=== PATIENT | female | born 1960 | race American Indian/Alaskan Native ===

== ENCOUNTER 2019-10-21 19:49 | Emergency (ER) | payer BC ==
[2019-10-21] MEDS ORDERED: TETRACAINE 0.5% OPHTH SOLN 4ML OU ONE (20:47)
--- NOTE | 2019-10-21 21:21 | Emergency Department Report ---
ED Eye Problem HPI - General Chief complaint: Eye Problems Stated complaint: FLOATERS IN LF EYE Time Seen by Provider: 10/21/19 20:32 Source: patient Mode of arrival: Ambulatory Limitations: No Limitations - History of Present Illness Initial comments: Patient is a 58-year-old female who presents emergency room with complaints of floaters present in the left eye that began around 6:30 PM tonight. She states that it looked like a bug was flying around and she just sees small floaters. She states that her vision does not appear blurry that she just sees the floaters. She denies any pain in the eye. She denies getting anything in the eye. She denies any contact lens use. She states this is never happened in the past. She denies any photophobia or any other symptoms. She denies any headache, facial droop, speech disturbance, gait disturbance, numbness, weakness, dizziness, chest pain, shortness of breath. 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 She has an allergy to Augmentin clarithromycin codeine and Bactrim. - Related Data Allergies Allergy/AdvReac Type Severity Reaction Status Date / Time amoxicillin [From Augmentin] Allergy Anaphylaxis Verified 10/21/19 20:01 clarithromycin [From Biaxin] Allergy Hives Verified 10/21/19 20:01 clavulanic acid Allergy Anaphylaxis Verified 10/21/19 20:01 [From Augmentin] codeine Allergy Nausea Verified 10/21/19 20:01 sulfamethoxazole Allergy Anaphylaxis Verified 10/21/19 19:59 [From Bactrim] trimethoprim [From Bactrim] Allergy Anaphylaxis Verified 10/21/19 19:59 ED Review of Systems ROS: Stated complaint: FLOATERS IN LF EYE Other details as noted in HPI Comment: All other systems reviewed and negative ED Past Medical Hx - Past Medical History 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 Absent: scleral icterus, conjunctival injection, nystagmus, periorbital swelling, periorbital tenderness Pupils: Present: normal accommodation - ENT ENT exam: Present: mucous membranes moist - Respiratory Respiratory exam: Present: normal lung sounds bilaterally. Absent: respiratory distress, wheezes, rales, rhonchi, stridor, chest wall tenderness, accessory muscle use, decreased breath sounds, prolonged expiratory - Cardiovascular Cardiovascular Exam: Present: regular rate, normal rhythm, normal heart sounds. Absent: systolic murmur, diastolic murmur, rubs, gallop - Neurological Exam Neurological exam: Present: alert, oriented X3, CN II-XII intact, normal gait. Absent: motor sensory deficit - Psychiatric Psychiatric exam: Present: normal affect, normal mood - Skin Skin exam: Present: warm, dry, intact ED Course Vital Signs 10/21/19 10/21/19 19:58 23:35 Temperature 98.4 F Pulse Rate 85 78 Respiratory 16 16 Rate Blood Pressure 178/91 Blood Pressure 154/81 [Right] O2 Sat by Pulse 99 98 Oximetry - Consultations Consultation #1: 10/21/19 22:[address] Randall, ophthalmic technologist at [facility], discussed pt presentation and all results states that patient can follow-up with her outpatient ophthalmic technologist in 24 hours, believes unlikely to be emergent condition at this time, states patient can follow-up outpatient and does not need emergent transfer ED Medical Decision Making - Lab Data Vital Signs 10/21/19 10/21/19 19:58 23:35 Temperature 98.4 F Pulse Rate 85 78 Respiratory 16 16 Rate Blood Pressure 178/91 Blood Pressure 154/81 [Right] O2 Sat by Pulse 99 98 Oximetry - Medical Decision Making Patient is a 58-year-old female who presents emergency room with complaints of floaters present in the left eye that began around 6:30 PM tonight. She states that it looked like a bug was flying around and she just sees small floaters. She states that her vision does not appear blurry that she just sees the floaters. She denies any pain in the eye. She denies getting anything in the eye. She denies any contact lens use. She states this is never happened in the past. She denies any photophobia or any other symptoms. She denies any headache, facial droop, speech disturbance, gait disturbance, numbness, weakness, dizziness, chest pain, shortness of breath. 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 She has an allergy to Augmentin clarithromycin codeine and Bactrim. Initial vitals with elevated blood pressure which improved upon repeat. On exam: Normal appearance of the eyes, no conjunctival injection, no obvious abnormality on funduscopic exam, EOMI, PERRL. Discussed case with Dr. Goins, ER attending who evaluated patient at bedside and performed funduscopic exam and also did not see any obvious abnormality recommended discussing case with an ophthalmic technologist. Visual acuity bilateral 20/15, right eye 20/20, left eye 20/25. Guero-Pen used for eye pressure, right eye 17, left eye 4. the patient states that the floaters have improved. discussed case with Dr. Randall, ophthalmic technologist at [facility], discussed pt presentation and all results, states that patient can follow-up with her outpatient ophthalmic technologist in 24 hours, believes unlikely to be emergent condition at this time, states patient can follow-up outpatient and does not need emergent transfer. Discussed with patient the importance of seeing an ophthalmic technologist in the next 24 hours, she verbalized understanding. advised pt It is very important that you follow-up with an ophthalmic technologist in the next 24 hours. Return to the emergency room immediately for any new or worsening symptoms including but not limited to vision changes, flashing lights, sensation of curtain closing, worsening floaters, any other symptoms, etc. - Differential Diagnosis Retinal detachment, open/closed angle glaucoma, vitreous floaters Critical care attestation.: If time is entered above; I have spent that time in minutes in the direct care of this critically ill patient, excluding procedure time. ED Disposition Clinical Impression: Vitreous floaters of left eye Disposition: DC-01 TO HOME OR SELFCARE Is pt being admited?: No Does the pt Need Aspirin: No Condition: Stable Instructions: Visual Floaters (ED) Additional Instructions: It is very important that you follow-up with an ophthalmic technologist in the next 24 hours. Return to the emergency room immediately for any new or worsening symptoms including but not limited to vision changes, flashing lights, sensation of curtain closing, worsening floaters, any other symptoms, etc. Referrals: ANJALI STUBBS MD [Staff Physician] - 24 Hours [facility] [Provider Group] - 24 Hours Time of Disposition: 23:12 Print Language: SUDANESE
[2019-10-22 01:30] VITALS: BP 154/81
== END 2019-10-21 23:35 | disposition home or self-care (01) ==
LOC: ED 19:49
DX: H43.392 Other vitreous opacities, left eye (principal); Z88.1 Allergy status to other antibiotic agents; Z88.6 Allergy status to analgesic agent
CPT/HCPCS: 99282

== ENCOUNTER 2020-01-19 08:51 | Outpatient (CLI) | payer BC ==
--- NOTE | 2020-01-19 11:46 | Mammography Report ---
DIGITAL SCREENING MAMMOGRAM WITH CAD, 01/19/2020 INDICATION: Routine screening mammography. TECHNIQUE: Digital bilateral 2D mammography was obtained in the craniocaudal and mediolateral obliq ue projections. This examination was interpreted with the benefit of Computer-Aided Detection analysi s. COMPARISON: 09/07/2014, 06/03/2013 FINDINGS: Breast Density: The breasts are heterogeneously dense, which may obscure small masses. There is no evidence of dominant mass, suspicious calcifications or architectural distortion in eithe r breast. IMPRESSION: Follow up recommendation: Routine yearly BI-RADS Category 1: Negative. A "normal" or negative report should not discourage follow up or biopsy of a clinically significant f inding. A written summary of these findings will be mailed to the patient. The patient will be entered into a mammography reporting system which will generate a reminder letter for the patient's next appointmen t at the appropriate interval. The [employer] recommends yearly mammograms starting at age 40 and continuing as l juan as a woman is in good health. Breast MRI is recommended for women with an approximate 20-25% or greater lifetime risk of breast cancer, including women with a strong family history of breast or ova mai cancer or who have been treated for Hodgkin's disease. Signer Name: Aniket Rose MD Signed: 01/19/2020 11:41 AM Workstation Name: [id number]
== END 2020-01-19 08:52 | disposition home or self-care (01) ==
LOC: SPVWC 08:51
PROVIDERS: ATTEND Obstetrics & Gynecology
DX: Z12.31 Encounter for screening mammogram for malignant neoplasm of breast (principal); N64.89 Other specified disorders of breast
CPT/HCPCS: 77067

== ENCOUNTER 2021-02-23 15:52 | Outpatient (CLI) | payer BC ==
--- NOTE | 2021-02-24 08:40 | Mammography Report ---
DIGITAL SCREENING MAMMOGRAM WITH CAD, 02/23/2021 CLINICAL INFORMATION / INDICATION: Routine screening TECHNIQUE: Digital bilateral 2D mammography was obtained in the craniocaudal and mediolateral obliqu e projections. This examination was interpreted with the benefit of Computer-Aided Detection analysis . COMPARISON: 01/19/2020 FINDINGS: Breast Density: The breasts are heterogeneously dense, which may obscure small masses. No dominant mass, suspicious calcifications, or architectural distortion in either breast. IMPRESSION: No mammographic evidence of malignancy. Follow up recommendation: Routine yearly BI-RADS Category 1: Negative. A "normal" or negative report should not discourage follow up or biopsy of a clinically significant f inding. A written summary of these findings will be mailed to the patient. The patient will be entered into a mammography reporting system which will generate a reminder letter for the patient's next appointmen t at the appropriate interval. The [employer] recommends yearly mammograms starting at age 40 and continuing as l juan as a woman is in good health. Breast MRI is recommended for women with an approximate 20-25% or greater lifetime risk of breast cancer, including women with a strong family history of breast or ova mai cancer or who have been treated for Hodgkin's disease. Signer Name: Donnell Naqvi MD Signed: 02/24/2021 8:36 AM Workstation Name: [id number]
== END 2021-02-23 15:53 | disposition home or self-care (01) ==
LOC: SPVWC 15:52
PROVIDERS: ATTEND Obstetrics & Gynecology
DX: Z12.31 Encounter for screening mammogram for malignant neoplasm of breast (principal)
CPT/HCPCS: 77067

== ENCOUNTER 2022-03-08 15:16 | Outpatient (CLI) | payer BC ==
--- NOTE | 2022-03-09 14:23 | Mammography Report ---
DIGITAL SCREENING MAMMOGRAM WITH CAD, 03/08/2022 CLINICAL INFORMATION / INDICATION: Routine screening mammography. TECHNIQUE: Digital bilateral 2D mammography was obtained in the craniocaudal and mediolateral obliqu e projections. This examination was interpreted with the benefit of Computer-Aided Detection analysis . COMPARISON: 02/23/2021, 01/19/2020 FINDINGS: Breast Density: The breasts are heterogeneously dense, which may obscure small masses. No dominant mass, suspicious calcifications, or architectural distortion in either breast. No interval change. IMPRESSION: No mammographic evidence of malignancy. Follow up recommendation: Routine yearly screening mammogram. BI-RADS Category 1: NEGATIVE A "normal" or negative report should not discourage follow up or biopsy of a clinically significant f inding. A written summary of these findings will be mailed to the patient. The patient will be entered into a mammography reporting system which will generate a reminder letter for the patient's next appointmen t at the appropriate interval. The [employer] recommends yearly mammograms starting at age 40 and continuing as l juan as a woman is in good health. Breast MRI is recommended for women with an approximate 20-25% or greater lifetime risk of breast cancer, including women with a strong family history of breast or ova mai cancer or who have been treated for Hodgkin's disease. Signer Name: Leda Lala MD Signed: 03/09/2022 2:19 PM Workstation Name: [id number]
== END 2022-03-08 15:17 | disposition home or self-care (01) ==
LOC: SPVWC 15:16
PROVIDERS: ATTEND Obstetrics & Gynecology
DX: Z12.31 Encounter for screening mammogram for malignant neoplasm of breast (principal)
CPT/HCPCS: 77067